=== PATIENT | male | born 1950 | race Caucasian/White ===

== ENCOUNTER → 2016-04-06 | Day surgery (SDC) | payer MEDICARE, OTHER ==
--- NOTE | 2016-04-06 12:39 | NUR ---
ALL MEDICATIONS ADMINISTERED BY ANESTHESIA PROVIDER, SEE ANESTHESIA RECORD.
== END ==
LOC: MSO 07:34
DX: D64.9 Anemia, unspecified (principal); K44.9 Diaphragmatic hernia without obstruction or gangrene; K31.7 Polyp of stomach and duodenum; K29.80 Duodenitis without bleeding; B96.81 Helicobacter pylori [H. pylori] as the cause of diseases classified elsewhere; K57.30 Diverticulosis of large intestine without perforation or abscess without bleeding
CPT/HCPCS: 00810; A4649; J3010; J7120